=== PATIENT | male | born 1975 | race African-American/Black ===

== ENCOUNTER 2020-11-30 18:50 | Emergency (ER) | payer SELFPAY ==
[2020-11-30 19:44] LABS: #Monocytes 0.8 10x3/uL (0.0-1.1); #Neutrophils 6.6 10x3/uL (1.5-8.4); %Basophils 0.1 % (0.0-2.0); %Eosinophils 0.1 % (0.0-6.0); %Lymphocytes 11.1 % (18.0-47.0); %Monocytes 9.3 % (0.0-10.0); %Neutrophils 78.9 % (40.0-75.0); Hemoglobin 14.4 g/dL (13.5-17.5); Mean Corpuscular HGB CONC 33.4 g/dL (32.0-36.0); Mean Corpuscular Hemoglobin 29.4 pg (27.0-33.0); Mean Corpuscular Volume 88.1 fl (81.2-95.1); Mean Platelet Volume 9.9 fl (7.4-10.4); Platelet Count 159 10x3/uL (150-450); RBC Distribution Width 12.6 % (11.5-14.5); Red Blood Cell (RBC) Count 4.89 10x6/uL (4.32-5.72); White Blood Cell (WBC) Count 8.3 10x3/uL (3.5-10.5)
[2020-11-30 20:01] LABS: ALT (SGPT) 20 U/L (8-55); AST (SGOT) 28 U/L (5-34); Albumin 4.2 g/dL (3.5-5.0); Alkaline Phosphatase 53 U/L (40-110); Anion Gap 16 mmol/L (10-20); BUN (Urea Nitrogen) 22 mg/dL (8.9-20.6); Bilirubin, Total 0.9 mg/dL (0.2-1.2); CK (CPK) 725 U/L (30-200); Calc. Creatinine Clearance 0 mL/min (70-130); Calcium 9.3 mg/dL (7.8-10.44); Carbon Dioxide 20 mmol/L (22-29); Chloride 104 mmol/L (98-107); Globulin 2.8 g/dL (2.4-3.5); Glucose 75 mg/dL (70-105); Potassium 3.7 mmol/L (3.5-5.1); Sodium 136 mmol/L (136-145)
[2020-11-30 22:42] LABS: Anion Gap 13 mmol/L (10-20); BUN (Urea Nitrogen) 19 mg/dL (8.9-20.6); Calc. Creatinine Clearance 0 mL/min (70-130); Carbon Dioxide 21 mmol/L (22-29); Chloride 109 mmol/L (98-107); Glucose 99 mg/dL (70-105); Potassium 3.9 mmol/L (3.5-5.1); Sodium 139 mmol/L (136-145)
== END 2020-11-30 22:55 | disposition home or self-care (01) ==
LOC: CSHERS 18:50
DX: T67.5XXA Heat exhaustion, unspecified, initial encounter (principal); N17.9 Acute kidney failure, unspecified; E86.0 Dehydration
CPT/HCPCS: 36415; 80053; 82550; 84484; 85025; 99283

== ENCOUNTER 2021-01-29 10:43 | Emergency (ER) | payer SELFPAY | END 2021-01-29 12:18 | disposition home or self-care (01) | LOC: CSHERS 10:43 | DX: S02.32XA Fracture of orbital floor, left side, initial encounter for closed fracture (principal); W22.8XXA Striking against or struck by other objects, initial encounter | CPT/HCPCS: 70450; 70486 ==

== ENCOUNTER 2021-10-14 12:35 | Emergency (ER) | payer SELFPAY ==
[2021-10-14] MEDS ORDERED: Ketorolac Tromethamine 30 MG/ML VIAL ONE (14:12)
[2021-10-14] MEDS ORDERED: Boostrix 0.5 ML (Tdap) VIAL ONE (14:12)
[2021-10-14] MEDS ORDERED: Bacitracin 1 PK ONE (15:08)
== END 2021-10-14 15:09 | disposition home or self-care (01) ==
LOC: CSHERS 12:35
DX: S61.214A Laceration without foreign body of right ring finger without damage to nail, initial encounter (principal); W27.0XXA Contact with workbench tool, initial encounter
CPT/HCPCS: 90471; 90715; 96372; J1885

== ENCOUNTER 2022-02-03 07:27 | Emergency (ER) | payer SELFPAY ==
[2022-02-03] MEDS ORDERED: Dicyclomine 20 MG/2 ML VIAL ONE (07:57)
[2022-02-03] MEDS ORDERED: Ondansetron PF 4 MG/2 ML Vial ONE (07:57)
[2022-02-03 08:20] LABS: #Monocytes 0.4 10x3/uL (0.0-1.1); #Neutrophils 5.1 10x3/uL (1.5-8.4); %Basophils 0.1 % (0.0-2.0); %Eosinophils 0.1 % (0.0-6.0); %Lymphocytes 23.9 % (18.0-47.0); %Monocytes 5.2 % (0.0-10.0); %Neutrophils 70.4 % (40.0-75.0); Hemoglobin 15.5 g/dL (13.5-17.5); Mean Corpuscular HGB CONC 35.4 g/dL (32.0-36.0); Mean Corpuscular Hemoglobin 31.4 pg (27.0-33.0); Mean Corpuscular Volume 88.7 fl (81.2-95.1); Mean Platelet Volume 9.9 fl (7.4-10.4); Platelet Count 169 10x3/uL (150-450); RBC Distribution Width 11.9 % (11.5-14.5); Red Blood Cell (RBC) Count 4.94 10x6/uL (4.32-5.72); White Blood Cell (WBC) Count 7.3 10x3/uL (3.5-10.5)
[2022-02-03 08:24] LABS: ALT (SGPT) 12 U/L (8-55); AST (SGOT) 15 U/L (5-34); Albumin 4.3 g/dL (3.5-5.0); Alkaline Phosphatase 51 U/L (40-110); Anion Gap 14 mmol/L (10-20); BUN (Urea Nitrogen) 10 mg/dL (8.9-20.6); Bilirubin, Total 0.4 mg/dL (0.2-1.2); CK (CPK) 232 U/L (30-200); Calc. Creatinine Clearance 0 mL/min (70-130); Calcium 9.6 mg/dL (7.8-10.44); Carbon Dioxide 21 mmol/L (22-29); Chloride 107 mmol/L (98-107); Estimated GFR 98; Globulin 2.6 g/dL (2.4-3.5); Glucose 113 mg/dL (70-105); Lipase 81 U/L (8-78); Protein, Total 6.9 g/dL (6.0-8.3); Sodium 138 mmol/L (136-145)
[2022-02-03 09:01] LABS: Bilirubin Neg (Negative); Blood, Urine Negative (Negative); Clarity Clear (Clear); Glucose, Urine (Dipstick) Normal (Negative); Ketone, Urine Negative (Negative); Leukocyte Negative (Negative); Nitrite Negative (Negative); Protein, Urine (Dipstick) Negative (Neg-Trace); Urobilinogen Normal mg/dL (Less than 2)
[2022-02-03] MEDS ORDERED: Iopamidol 300 61% 100 ML VIAL FS ONE (09:39)
== END 2022-02-03 09:25 | disposition home or self-care (01) ==
LOC: CSHERS 07:27
DX: R10.31 Right lower quadrant pain (principal); R10.32 Left lower quadrant pain
CPT/HCPCS: 74177; 80053; 81003; 82550; 83690; 85025; 87804; 96361; 96372; 96374; J2405; Q9967

== ENCOUNTER 2022-03-09 21:32 | Emergency (ER) | payer SELFPAY ==
[2022-03-09] MEDS ORDERED: Tetracaine 0.5% PF 4 ML BOT ONE (22:15)
[2022-03-09] MEDS ORDERED: Fluorescein Opthalmic Strip ONE ×2 (22:15→23:25)
[2022-03-10] MEDS ORDERED: Ketorolac Tromethamine 30 MG/ML VIAL ONE (00:43)
== END 2022-03-10 00:51 | disposition home or self-care (01) ==
LOC: CSHERS 21:32
DX: S05.01XA Injury of conjunctiva and corneal abrasion without foreign body, right eye, initial encounter (principal); S05.02XA Injury of conjunctiva and corneal abrasion without foreign body, left eye, initial encounter; W89.0XXA Exposure to welding light (arc), initial encounter
CPT/HCPCS: 96372; 99283; J1885